=== PATIENT | male | born 1950 | race Caucasian/White ===

== ENCOUNTER 2018-04-24 16:30 | Observation (INO) | payer MEDICARE ==
[2018-04-24] MEDS ORDERED: SIMETHICONE 80 MG CHEWABLE PO PRN (21:22)
[2018-04-24] MEDS ORDERED: HYDROcodone/APAP 5-325MG 1 EACH TAB PO PRN (21:23)
[2018-04-24] MEDS ORDERED: TEMAZEPAM 15 MG CAP PO PRN (21:23)
[2018-04-24] MEDS ORDERED: NALOXONE 0.4 MG/ML 1 ML VIAL IV PRN (21:23)
[2018-04-24] MEDS ORDERED: ACETAMINOPHEN TAB 500 MG TAB PO PRN (21:24)
[2018-04-24] MEDS ORDERED: HYDROmorphone 0.5 MG/0.5 ML SYRINGE IVP PRN (21:24)
[2018-04-24] MEDS ORDERED: ALPRAZolam 0.25 MG TAB PO PRN (21:24)
[2018-04-24 21:25] VITALS: BMI 22.8
[2018-04-24] MEDS ORDERED: SODIUM CHLORIDE 0.9% 1,000 ML IV SCH (21:30)
[2018-04-24] MEDS ORDERED: HEPARIN SODIUM,PORCINE 5,000 UNIT/ML 1 ML VIAL IV PRN (21:48)
[2018-04-24] MEDS ORDERED: HEPARIN SOD,PORK IN 0.45% NACL 25,000 UNIT in 0.45% NACL 1 250ML.BAG IV SCH (22:00)
[2018-04-24 23:07] LABS: Basophils % (A) 1 %; Eosinophils # (A) 0.2 k/uL (0-0.7); Eosinophils % (A) 2 %; HCT 48.4 % (39.0-53.0); HGB 15.1 gm/dL (13.0-17.5); Lymphocytes # (A) 2.6 k/uL (1.0-4.8); Lymphocytes % (A) 34 %; MCH 29.2 pg (25.0-35.0); MCHC 31.2 g/dL (31.0-37.0); MCV 93.6 fL (80.0-100.0); Mean Platelet Volume 8.2; Monocytes # (A) 0.5 k/uL (0-1.0); Monocytes % (A) 6 %; Neutrophils # (A) 4.2 k/uL (1.3-7.7); Neutrophils % (A) 55 %; Platelet Count 241 k/uL (150-450); RBC 5.17 m/uL (4.30-5.90); RDW 13.2 % (11.5-15.5); WBC 7.6 k/uL (3.8-10.6)
[2018-04-24 23:23] LABS: Creatine Kinase 67 U/L (55-170)
[2018-04-24 23:27] LABS: D-Dimer 0.25 mg/L FEU (<0.60); Partial Thromboplastin Time 26.4 sec (22.0-30.0); Prothrombin Time 10.4 sec (9.0-12.0)
[2018-04-24 23:36] LABS: Creatine Kinase MB 0.9 ng/mL (0.0-2.4); Troponin I <0.012 ng/mL (0.000-0.034)
--- NOTE | 2018-04-24 23:51 | CT ---
EXAMINATION TYPE: CT ChestAbdPelvis wo con DATE OF EXAM: 04/24/2018 COMPARISON: None HISTORY: chest pain. hx copd CT DLP: 459.7 mGycm. Automated Exposure Control for Dose Reduction was Utilized. TECHNIQUE: CT scan of the thorax, abdomen and pelvis is performed without IV contrast. FINDINGS: The lungs are clear of infiltrate. There is no pleural effusion or pneumothorax. Heart size is normal . There is no pericardial effusion. There is mild aneurysm of ascending aorta measures 4.1 cm. There is no mediastinal adenopathy. There are no hilar masses. There are clips from cholecystectomy. Liver spleen pancreas appear normal. Bile ducts are not dilated . Stomach appears normal. There is no adrenal mass. Kidneys have normal size and contour. There is no hydronephrosis. There is no retroperitoneal adenopathy. Ureters are not dilated. Bladder distends smoothly. There is no inguinal hernia. There is no free fluid in the pelvis. Appendi x appears normal. There is no evidence of a bowel obstruction. There is no mesenteric edema or adenop athy. There is no sign of free air. Lumbar and thoracic spine appear intact. I see no bony destructiv e process. Bony pelvis is intact. IMPRESSION: Negative CT scan of the chest abdomen pelvis.
[2018-04-25 04:41] LABS: Anion Gap 7 mmol/L; Blood Urea Nitrogen 16 mg/dL (9-20); Calcium 9.3 mg/dL (8.4-10.2); Carbon Dioxide 24 mmol/L (22-30); Chloride 109 mmol/L (98-107); Glucose 87 mg/dL (74-99); Sodium 140 mmol/L (137-145)
[2018-04-25 04:57] LABS: Creatine Kinase 59 U/L (55-170)
[2018-04-25 05:11] LABS: Creatine Kinase MB 0.8 ng/mL (0.0-2.4); Troponin I <0.012 ng/mL (0.000-0.034)
[2018-04-25 05:20] LABS: Basophils # (A) 0.1 k/uL (0-0.2); Basophils % (A) 1 %; Eosinophils # (A) 0.3 k/uL (0-0.7); Eosinophils % (A) 3 %; HCT 48.5 % (39.0-53.0); HGB 14.9 gm/dL (13.0-17.5); Lymphocytes # (A) 3.2 k/uL (1.0-4.8); Lymphocytes % (A) 40 %; MCH 28.9 pg (25.0-35.0); MCHC 30.7 g/dL (31.0-37.0); Mean Platelet Volume 8.5; Monocytes # (A) 0.5 k/uL (0-1.0); Monocytes % (A) 6 %; Neutrophils # (A) 3.7 k/uL (1.3-7.7); Neutrophils % (A) 47 %; Platelet Count 251 k/uL (150-450); RBC 5.16 m/uL (4.30-5.90)
[2018-04-25] MEDS: IPRATROPIUM-ALBUTEROL 3 ML NEB INHALATION SCH ×3 (07:41→20:02)
[2018-04-25] MEDS: PANTOPRAZOLE 40 MG TABLET PO SCH (08:21)
[2018-04-25] MEDS: NICOTINE 14MG/24HR PATCH TRANSDERM SCH ×2 (08:21→08:22)
--- NOTE | 2018-04-25 08:49 | HP ---
HISTORY AND PHYSICAL . CHIEF COMPLAINT: Chest pain. HISTORY OF PRESENT ILLNESS: This 67-year-old gentleman with a past history of multiple medical problems including COPD, GERD, history of bleeding duodenal ulcer, history of cardiac murmur, history of bulging aorta, history of season allergies, anxiety being followed by [facility] and as well as [facility] [place] presented to [facility] with complaints of chest pain. Pain was felt especially in the left side and also with associated left arm tingling and numbness and the patient came to [facility] and subsequently transferred to [facility] and admitted for further evaluation and treatment. There is no history of fever, rigors or chills. No history of headache, loss of consciousness, seizures. PAST MEDICAL HISTORY: COPD, GERD, bleeding duodenal ulcer, cholecystectomy, DJD, anxiety. MEDICATIONS: Home medications are: 1. Gas-X 125 mg q.6h p.r.n. 2. Omeprazole 40 mg p.o. daily. 3. Sadie 180 mg q.h.s. 4. Ecotrin 81 mg. ALLERGIES: CAT DANDER, MOLD, POLLEN, AMOXICILLIN, CLAVULANIC ACID, CARAFATE, TRIMPEX, DURATES, TRIPLEX. FAMILY HISTORY: History of coronary artery disease, myocardial infarction in the family, history of cancer in the family. SOCIAL HISTORY: History of smoking. History of THC. REVIEW OF SYSTEMS: ENT: No diminished hearing. No diminished vision. CARDIOVASCULAR: As mentioned earlier. RESPIRATORY: As mentioned earlier. GI: No nausea or vomiting. : No dysuria. NERVOUS SYSTEM: No numbness or weakness. ALLERGY/IMMUNOLOGY: No asthma or hayfever. MUSCULOSKELETAL as mentioned earlier. HEMATOLOGY/ONCOLOGY: No history of anemia. ENDOCRINE: No history of diabetes or hypothyroidism. CONSTITUTIONAL: As mentioned earlier. Dermatology: Negative. Rheumatology: Negative. Psychiatry: As mentioned earlier. PHYSICAL EXAMINATION: GENERAL: Alert and oriented x3. VITAL SIGNS: Pulse is 64, blood pressure 172/60, respirations 16, temperature 98.2, pulse ox 98% on room air. HEENT: Conjunctivae normal. Oral mucosa moist. NECK is no jugular venous distention. No carotid bruit. No lymph node enlargement. CARDIOVASCULAR: S1, S2 muffled. RESPIRATION: Breath sounds diminished in the bases. A few scattered rhonchi and expiratory wheezing also present. A few crackles. ABDOMEN: Soft, nontender. No mass palpable. LEGS: No edema. No swelling. NERVOUS SYSTEM: Higher functions as mentioned earlier. Moves all four limbs. lymphatics: No lymph nodes palpable in the neck, axillae or groin. SKIN: No ulcer, rash or bleeding. LAB STUDIES: Pending at this time. ASSESSMENT: 1. Chest pain possible unstable angina. 2. Chronic obstructive pulmonary disease. 3. Thoracic aortic aneurysm 4.1 cm. 4. Gastroesophageal reflux disease. 5. History of bleeding duodenal ulcer. 6. History of seasonal allergies. 7. History of cholecystectomy. 8. History of anxiety. 9. History of nicotine dependence. 10.History of past ETOH abuse about 8 years ago. 11.History of THC. 12.Family history of coronary artery disease. RECOMMENDATIONS AND DISCUSSION: In this 67-year-old gentleman who presented with multiple complex medical issues , we will monitor the patient closely, continue the current medications, management and symptomatic treatment. I would recommend rule out myocardial infarction, cardiology consultations. Unstable angina protocol. I would also recommend a CT scan of the abdomen and pelvis and continue to monitor. N.p.o. after midnight. Guarded prognosis because of multiple complex medical issues. Further recommendations to follow. A copy of dictation forwarded to Dr. Wynne and Tika Carrillo who are the primary doctors. MMODL / IJN: [id number] / [email or web address]
[2018-04-25] MEDS ORDERED: NON-FORMULARY DRUG (Omeprazole [Omeprazole] 40 MG) PO SCH (09:00)
--- NOTE | 2018-04-25 09:45 | XR ---
EXAMINATION TYPE: XR chest 1V portable DATE OF EXAM: 04/25/2018 HISTORY: chf. REFERENCE: NONE. FINDINGS: The lungs are overinflated but clear. Pleural space are clear. The heart is not enlarged. IMPRESSION: COPD.
--- NOTE | 2018-04-25 11:04 | CONS ---
CONSULTATION HISTORY: Mr. Desai is a 67-year-old gentleman who was transferred from [facility] with a complaint of chest pain. The patient has been having some chest pain in the left precordial area under the ribcage. It was intermittent sharp pain. He did not had any nausea, vomiting or sweating. The patient was seen in the emergency room at [place] and subsequently was transferred over here. Patient denies any history of exertional chest discomfort. There is no prior history of myocardial infarction. The patient's EKGs and cardiac enzymes are so far normal. The patient does have a past history of bleeding ulcer and history of COPD and cholecystectomy. The patient had a CT scan of the abdomen which was normal. PAST MEDICAL HISTORY: Includes history of COPD, bleeding duodenal ulcer, cholecystectomy. HOME MEDICATIONS: Include Gas-X, omeprazole, Sadie, and Ecotrin. REVIEW OF THE SYSTEM: Otherwise unremarkable. PHYSICAL EXAMINATION: Reveals a 67-year-old gentleman who is currently not in any acute distress. Blood pressure is 140/67 mmHg, heart rate is 78 per minute. HEENT examination is negative. Neck is supple. There is no increase in jugular venous pressure. Both the carotid pulses are felt. There is no bruit. Chest is symmetrical. Heart, the PMI is not felt. First and second heart sounds are normal. Lungs are clinically clear to auscultation and percussion. Abdomen negative. Extremities, peripheral pulses are 2+. The EKG shows normal sinus rhythm without any acute ischemic changes. Cardiac enzymes are negative. FINAL IMPRESSION: This patient's history is suggestive of atypical angina. The patient's CT scan is normal. EKGs and cardiac enzymes are normal. The patient will be evaluated with echocardiogram and stress echocardiographic study tomorrow. If that is normal, patient can be discharged. He is advised to follow up with Dr. Jarrett in [place]. MMODL / IJN: [id number] /
[2018-04-25 13:39] LABS: Creatine Kinase 58 U/L (55-170)
[2018-04-25 13:52] LABS: Creatine Kinase MB 0.8 ng/mL (0.0-2.4); Troponin I <0.012 ng/mL (0.000-0.034)
[2018-04-25] MEDS ORDERED: LORATADINE 10 MG TAB PO SCH (21:00)
[2018-04-25] MEDS ORDERED: ASPIRIN 81 MG PO SCH (21:00)
--- NOTE | 2018-04-26 00:43 | PN ---
PROGRESS NOTE DATE OF SERVICE: 04/25/2018 This 67-year-old gentleman who was admitted with chest pain is being closely monitored at this time. Cardiology saw the patient and is recommending a stress test, stress echo tomorrow. No chest pain. No palpitations. No fever. EXAM: GENERAL: Alert and oriented times three. VITAL SIGNS: Pulse is 82. Blood pressure 116/60, respirations 16, temperature 98.2, pulse ox 98% on room air. HEENT: Conjunctivae normal. NECK: No jugular venous distention. CARDIOVASCULAR: S1, S2 normal. RESPIRATORY: Breath sounds diminished in the bases. Scattered rhonchi. No crackles. ABDOMEN is soft, nontender. LEGS are no edema, no swelling. CENTRAL NERVOUS SYSTEM: No focal deficits. LABS: CBC, BMP noted. ASSESSMENT: 1. Chest pain possible unstable angina. 2. Myocardial infarction ruled out. 3. Chronic obstructive pulmonary disease. 4. Thoracic aortic aneurysm 4.1 cm. 5. Gastroesophageal reflux disease. 6. History of bleeding duodenal ulcer. 7. History of seasonal allergies. 8. History of cholecystectomy. 9. History of anxiety. 10.History of nicotine dependence. 11.History of a past ETOH abuse, about 8 years ago. 12.History of THC. 13.Family history of coronary artery disease. RECOMMENDATIONS AND DISCUSSION: Recommend to continue current medications, management and symptomatic treatment. Otherwise at this time, stress test per Cardiology. Thoracic aortic aneurysm to be followed up in the outpatient setting. Otherwise, continue to monitor. Prognosis guarded. Stable. Further recommendations to follow. MMODL / IJN: [id number] /
[2018-04-26 08:11] VITALS: RESP 18
[2018-04-26] MEDS: IPRATROPIUM-ALBUTEROL 3 ML NEB INHALATION SCH ×2 (08:36→13:04)
--- NOTE | 2018-04-26 10:58 | P.PN ---
Subjective This is a pleasant 67-year-old male past medical history significant for COPD and chronic nicotine dependence. He denies hypertension, dyslipidemia, coronary artery disease or diabetes mellitus. He is scheduled to see Dr. Jarrett in the beginning of May. He denies any further symptoms of chest discomfort since admission. He also denies significant shortness of breath, no palpitations or dizziness. Blood pressure 116/75 heart rate is 78 afebrile maintaining oxygen saturation on room air. Cardiac enzymes negative 3, echocardiogram pending. Currently maintained on aspirin 81 mg daily. He states he used to take medication for hypertension, but has not been on them for the last 3 years due to his blood pressure improving. He states he checks his pressures daily at home and over the last few weeks they have been trending in the 140 systolic range. GENERAL: Well-appearing, well-nourished and in no acute distress. NECK: Supple without JVD or thyromegaly. LUNGS: Breath sounds clear to auscultation bilaterally. Respiration equal and unlabored. No wheezes, rales or rhonchi. HEART: Regular rate and rhythm without murmurs, rubs or gallops. S1 and S2 heard. EXTREMITIES: Normal range of motion, no edema. No clubbing or cyanosis. Peripheral pulses intact. ASSESSMENT Chest pain, atypical. An acute coronary event has been ruled out with no EKG evidence of ischemia and negative cardiac enzymes. Hypertension COPD Chronic nicotine dependence PLAN Initiate on small dose of lisinopril 5 mg daily. Proceed with stress echocardiogram and doppler study to assess cardiac structure and function. Check lipid profile. If stress test is normal he is stable from a cardiac perspective. Follow up with Dr. Jarrett at already scheduled appointment in May. Continue to check blood pressures daily at home and keep journal to bring with him to follow up appointment. Nurse Practitioner note has been reviewed, I agree with a documented findings and plan of care. Patient was seen and examined. Objective - Vital Signs Vital signs: Vital Signs Temp 97.8 F 04/26/18 07:35 Pulse 80 04/26/18 08:47 Resp 18 04/26/18 07:35 BP 168/75 04/26/18 07:35 Pulse Ox 97 04/26/18 07:35 Intake & Output 04/25/18 04/26/18 04/26/18 18:59 06:59 18:59 Other: Voiding Method Toilet Toilet # Voids 1 - Labs CBC & Chem 7: 04/25/18 04:09 04/25/18 04:09
[2018-04-26] MEDS ORDERED: LISINOPRIL 5 MG TAB PO SCH (11:00)
[2018-04-26] MEDS: NICOTINE 14MG/24HR PATCH TRANSDERM SCH (11:13)
[2018-04-26] MEDS: PANTOPRAZOLE 40 MG TABLET PO SCH (11:15)
[2018-04-26 11:33] LABS: Cholesterol 205 mg/dL (<200); HDL Cholesterol 49 mg/dL (40-60); LDL Cholesterol,Calculated 128 mg/dL (0-99); Triglycerides 138 mg/dL (<150)
[2018-04-26 12:02] VITALS: BP 115/78; PULSE 91; TEMP 97.3
--- NOTE | 2018-04-27 07:06 | ECHOS ---
STRESS ECHOCARDIOGRAM DATE OF SERVICE: 04/26/2018 INDICATIONS: Chest pain. MEDICATIONS: BASELINE HEART RATE: 97 BASELINE BLOOD PRESSURE: 145/78 MAXIMUM HEART RATE: 158 MAXIMUM BLOOD PRESSURE: 196/91 85% MPHR: 128 100% MPHR: 151 METS: 7.1 MAXIMUM STAGE REACHED: II TOTAL EXERCISE TIME: 5 minutes 15 seconds CLINICAL INFORMATION: Baseline EKG revealed normal sinus rhythm without significant ST-T changes. Patient walked for 5 minutes 15 seconds achieved a maximal heart rate of 158 beats per minute which is more than 85% of predicted maximal. The patient developed fatigue and shortness of breath but did not have any angina or arrhythmia. EKG did not reveal any ST-segment changes to indicate ischemia. Nonspecific upsloping ST-segment changes were noted. By EKG criteria, this is a negative stress test with limited exercise capacity. Baseline echo images revealed normal wall motion and wall thickening of all segments. At peak exercise, there was good augmentation of left ventricular wall motion and wall thickening of all segments. The inferobasal segment showed some questionable area of hypokinesia, but I do not believe this is significant. There is no clear-cut evidence of stress-induced ischemia on this study. FINAL IMPRESSION: 1. Fair exercise capacity with a negative stress test by EKG criteria. 2. No clear-cut evidence of ischemia on the stress echocardiogram. MMODL / IJN: [id number] /
--- NOTE | 2018-04-27 07:19 | ECHOF ---
Referral Reason:cp MEASUREMENTS -------- HEIGHT: 172.7 cm WEIGHT: 67.6 kg BP: 160/75 RVIDd: 2.5 cm (< 3.3) IVSd: 1.0 cm (0.6 - 1.1) LVIDd: 3.8 cm (3.9 - 5.3) LVPWd: 1.0 cm (0.6 - 1.1) IVSs: 1.1 cm LVIDs: 2.7 cm LVPWs: 1.2 cm LAESV Index (A-L): 10.81 ml/m Ao Diam: 2.7 cm (2.0 - 3.7) AV Cusp: 1.1 cm (1.5 - 2.6) LA Diam: 2.5 cm (2.7 - 3.8) EPSS: 0.7 cm MV E Carlos: 0.78 m/s MV DecT: 274 ms MV A Carlos: 0.82 m/s MV E/A Ratio: 0.95 RAP: 5.00 mmHg RVSP: 9.51 mmHg MV EF SLOPE: 85.04 mm/s (70 - 150) MV EXCURSION: 1.16 cm (> 18.000) FINDINGS -------- Sinus rhythm. This was a technically good study. The left ventricular size is normal. Left ventricular wall thickness is normal. Overall left vent ricular systolic function is normal with, an EF between 55 - 60 %. The right ventricle is normal in size and function. Normal LA size by volume 22+/-6 ml/m2. The right atrium is normal in size. Aortic valve is trileaflet and is mildly thickened. There is no evidence of aortic regurgitation. There is no evidence of aortic stenosis. The mitral valve leaflets are mildly thickened. There is trace to mild mitral regurgitation. Trace tricuspid regurgitation present. Right ventricular systolic pressure is normal at < 35 mmHg. There is no evidence of pulmonary hypertension. Trace/mild (physiologic) pulmonic regurgitation. The aortic root size is normal. Normal inferior vena cava with normal inspiratory collapse consistent with estimated right atrial pre ssure of 5 mmHg. There is no pericardial effusion. CONCLUSIONS -------- 1. Sinus rhythm. 2. This was a technically good study. 3. The left ventricular size is normal. 4. Left ventricular wall thickness is normal. 5. Overall left ventricular systolic function is normal with, an EF between 55 - 60 %. 6. Normal LA size by volume 22+/-6 ml/m2. 7. Aortic valve is trileaflet and is mildly thickened. 8. The mitral valve leaflets are mildly thickened. 9. There is trace to mild mitral regurgitation. 10. Trace tricuspid regurgitation present. 11. Right ventricular systolic pressure is normal at < 35 mmHg. 12. There is no evidence of pulmonary hypertension. 13. Trace/mild (physiologic) pulmonic regurgitation. 14. The aortic root size is normal. 15. There is no pericardial effusion. STEAM FITTER: Jerome Alfaro RDCS
--- NOTE | 2018-04-27 08:00 | DS ---
DISCHARGE SUMMARY DATE OF SERVICE: 04/26/2018 FINAL DIAGNOSES: 1. Chest pain, myocardial infarction ruled out, possibly musculoskeletal. Negative stress echo, official report pending. Other diagnosis of chronic obstructive pulmonary disease. 2. Thoracic aortic aneurysm 4.1 cm. 3. Gastroesophageal reflux disease, history of bleeding, duodenal ulcer. 4. History of seasonal allergies. 5. History of cholecystitis. 6. History of anxiety. 7. History of nicotine dependence. 8. History of past ETOH abuse. about 8 years ago. 9. History of THC. 10.Family history of coronary artery disease. 11.Hypertension. DISCHARGE DISPOSITION: The patient will be discharged in a stable condition with guarded prognosis. HISTORY OF PRESENT ILLNESS: This is a 67-year-old gentleman with a past medical history of multiple medical problems admitted with chest pain, myocardial infarction ruled out. Stress echo was apparently normal. The official report is pending at this time. The patient is discharged. On exam, vitals are stable. CARDIOVASCULAR: S1, S2. ABDOMEN: Soft. NERVOUS SYSTEM: No focal deficits. Discharge diet is cardiac diet. FOLLOWUP: Follow up with the primary physician in 1 week. Follow up with Dr. Jarrett as advised. MEDICATIONS FOLLOWS: 1. Ecotrin 81 mg q.h.s. 2. Sadie 180 mg q.h.s. 3. Omeprazole 40 mg daily. 4. Gas-X q.6 p.r.n. 5. Ventolin HFA 1-2 puffs q.6. 6. Zestril 5 mg p.o. daily. 7. Habitrol 14 daily. Once again, the patient will be discharged in a stable condition with guarded prognosis. MMODL / IJN: [id number] /
== END 2018-04-26 14:11 | disposition home or self-care (01) ==
LOC: 1SOBS 20:20
PROVIDERS: ADMIT Internal Medicine; ATTEND Internal Medicine
DX: R07.2 Precordial pain (principal); R20.2 Paresthesia of skin; R20.0 Anesthesia of skin; J44.9 Chronic obstructive pulmonary disease, unspecified; I71.2 Thoracic aortic aneurysm, without rupture; Z87.11 Personal history of peptic ulcer disease; K21.9 Gastro-esophageal reflux disease without esophagitis; J30.2 Other seasonal allergic rhinitis; F41.9 Anxiety disorder, unspecified; Z82.49 Family history of ischemic heart disease and other diseases of the circulatory system; I10 Essential (primary) hypertension; Z87.891 Personal history of nicotine dependence; Z90.49 Acquired absence of other specified parts of digestive tract; M19.90 Unspecified osteoarthritis, unspecified site; Z79.899 Other long term (current) drug therapy; Z79.82 Long term (current) use of aspirin; Z80.9 Family history of malignant neoplasm, unspecified; Z88.0 Allergy status to penicillin; Z88.8 Allergy status to other drugs, medicaments and biological substances; Z91.048 Other nonmedicinal substance allergy status
CPT/HCPCS: 96365; 96366 ×2; 94640 ×3; 94760; 93306; 93351; 85379; 80061; 80048; 82550 ×2; 82553 ×2; 84484 ×2; 85025 ×2; 85610; 85730 ×2; 71045; 71250; 74176; G0378 ×3; G0379; J1644

== ENCOUNTER 2022-09-10 09:14 | Day surgery (SDC) | payer MEDICARE ==
[~2022-09-10 09:14] MED LIST: ALPRAZolam 0.25 MG TAB PO PRN; ASPIRIN 325 MG TAB PO PRN; SODIUM CHLORIDE 0.9% 1,000 ML in EMPTY BAG 1 BAG IV ONE
[2022-09-10 10:02] LABS: Basophils % (A) 0 %; Eosinophils # (A) 0.1 k/uL (0-0.7); Eosinophils % (A) 1 %; HCT 44.4 % (39.0-53.0); HGB 14.8 gm/dL (13.0-17.5); Lymphocytes # (A) 1.9 k/uL (1.0-4.8); Lymphocytes % (A) 29 %; MCH 30.5 pg (25.0-35.0); MCHC 33.3 g/dL (31.0-37.0); MCV 91.8 fL (80.0-100.0); Mean Platelet Volume 8.8; Monocytes # (A) 0.3 k/uL (0-1.0); Monocytes % (A) 4 %; Neutrophils # (A) 4.3 k/uL (1.3-7.7); Neutrophils % (A) 65 %; Platelet Count 218 k/uL (150-450); RBC 4.84 m/uL (4.30-5.90); RDW 13.4 % (11.5-15.5); WBC 6.6 k/uL (3.8-10.6)
[2022-09-10 10:12] LABS: African American GFR (CKD) >90 (>60 ml/min/1.73 sqM); Anion Gap 11 mmol/L; Blood Urea Nitrogen 14 mg/dL (9-20); Calcium 9.2 mg/dL (8.4-10.2); Carbon Dioxide 24 mmol/L (22-30); Chloride 105 mmol/L (98-107); Glucose 107 mg/dL (74-99); Non-African American GFR(CKD) 87 (>60 ml/min/1.73 sqM); Potassium 4.1 mmol/L (3.5-5.1); Sodium 140 mmol/L (137-145)
[2022-09-10] MEDS ORDERED: LIDOCAINE 1% INJ 10MG/ML (20 ML MDV) ONE (11:12)
[2022-09-10] MEDS ORDERED: MIDAZOLAM 2 MG/2 ML VIAL IV ONE (11:29)
[2022-09-10] MEDS: HEPARIN SODIUM 1,000 UN/ML (10ML VL) IVP ONE ×2 (11:40→11:58)
[2022-09-10] MEDS ORDERED: HEPARIN SODIUM 1,000 UN/ML (10ML VL) ONE (11:41)
[2022-09-10] MEDS ORDERED: hydrALAZINE HCL 20 MG/ML 1 ML VIAL ONE ×2 (12:46→14:46)
[2022-09-10] MEDS: hydrALAZINE HCL 20 MG/ML 1 ML VIAL IVP ONE ×2 (12:48→15:03)
[2022-09-10] MEDS ORDERED: fentaNYL (PF) 50 MCG/ML 2 ML AMP ONE (12:59)
[2022-09-10] MEDS ORDERED: fentaNYL (PF) 50 MCG/ML 2 ML AMP IVP ONE (13:01)
[2022-09-10] MEDS ORDERED: IOPAMIDOL-370 100ML BTL INJ ONE (13:08)
[2022-09-10] MEDS ORDERED: ASPIRIN 325 MG TAB PO PRN (13:16)
[2022-09-10] MEDS ORDERED: FLUTICASONE 50MCG/SPRAY NASAL 16GM NASAL PRN (13:16)
[2022-09-10] MEDS ORDERED: NALOXONE 0.4 MG/ML 1 ML VIAL IVP PRN (13:17)
[2022-09-10] MEDS ORDERED: CLOPIDOGREL 75 MG TAB ONE (13:17)
[2022-09-10] MEDS ORDERED: CLOPIDOGREL 75 MG TAB PO ONE (13:20)
--- NOTE | 2022-09-10 13:23 | P.PCN ---
Date of Procedure: 09/10/22 Operative Findings: PERCUTANEOUS PERIPHERAL INTERVENTION Performing physician Trae Jarrett M.D. Procedure performed 1. Successful balloon angioplasty of the right SFA with adjunctive use off atherectomy and imaging 2. Successful stenting of the right external iliac and common iliac artery with adjunctive use off lithotripsy and imaging 3. Right lower extremity angiogram and left common femoral artery angiogram 4. Ultrasound-guided access of the left common femoral artery Indication Right lower extremities intermittent claudication appeared to be disabling in this gentleman who underwent an angiogram and that showed critical right common and right external iliac artery and critical right SFA Approach Left common femoral artery Complications None Level of sedation Moderate with a sedation time of 95 minutes Procedure description After obtaining an informed consent the patient was brought to the cardiac laboratory coordinator. The left common femoral artery was cannulated using micropuncture technique and guidance, the micropuncture wire passed easily then I placed a 6- Kittitian sheath 70 cm at the left common femoral artery. Anticoagulation at that point was initiated using heparin with continuous ACT monitoring. Subsequently I did selective the right SFA using 035 stiff Glidewire with a backup support of 5-Kittitian rim catheter and then I advanced the sheath over the wire and the catheter to the right common femoral artery. Right lower extremity angiogram was performed and showed critical disease involving the right SFA and right iliacs. I did an measuring using intravascular ultrasound and that showed a diameter of the SFA around 6 mm. Atherectomy was performed using the Hawk device. After that balloon angioplasty was performed using 6 mm balloon and then 6 cm drug-coated balloon with angiogram following that showing an excellent angiographic results. Regarding the right iliacs I pulled the sheath all the way to the ostial of the right common iliac artery. I did after that over 014 wire intravascular ultrasound and that showed a diameter of the external about 7 mm and common around 8 mm. The external was extremely calcified and I decided to do lithotripsy. That was 7 mm x 40 mm balloon. After that I did deploy initially in the right external iliac artery self-expandable stent and that was 8 mm x 60 mm and that was connected proximally in the right common iliac artery was balloon expandable stent which was 8 mm x 59 mm. Final angiogram was performed and showed an excellent angiographic results. After that I did exchange my long sheath into short sheath over an 035 wire before I did selective left common femoral artery angiogram by the end. The procedure was completed was no complication Postprocedure management 1. Dual antiplatelet therapy 2. Aggressive cholesterol control 3. Risk factors modification 4. Follow-up with the patient
[2022-09-10] MEDS ORDERED: SODIUM CHLORIDE 0.9% 1,000 ML in EMPTY BAG 1 BAG IV SCH (13:30)
--- NOTE | 2022-09-10 15:49 | IR ---
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 Right leg pain. TECHNIQUE: Fluoroscopy. COMPARISON: None. FINDINGS: Fluoroscopic guidance was provided during lower extremity angiogram procedure performed by Dr. Jarrett. A total of 24.4 MedX of fluoroscopic time was utilized during the procedure and 288 spot images was acquired. Please refer to procedure note for further details. IMPRESSION: As Above. TOTAL DAP = 35.9 Gy x cm2.
[2022-09-10] MEDS ORDERED: LORATADINE 10 MG TAB PO SCH (21:00)
[2022-09-10] MEDS ORDERED: amLODIPine 5 MG TAB PO SCH (21:00)
[2022-09-10] MEDS ORDERED: ATORVASTATIN 80 MG TAB PO SCH (21:00)
[2022-09-11] MEDS ORDERED: PANTOPRAZOLE 40 MG TABLET PO SCH (07:30)
[2022-09-11] MEDS ORDERED: SERTRALINE 25 MG TAB PO SCH (09:00)
[2022-09-11] MEDS ORDERED: CLOPIDOGREL 75 MG TAB PO SCH (09:00)
[2022-09-11] MEDS ORDERED: ASPIRIN 325 MG TAB PO SCH (09:00)
[2022-09-11 09:26] VITALS: TEMP 98
--- NOTE | 2022-09-11 11:04 | P.DS ---
Providers Attending physician: Trae Jarrett Primary care physician: Stated None Hospital Course: The patient is a pleasant 72-year-old gentleman who underwent yesterday successful RN UNIT MANAGER of the right iliac and right SFA. He was seen this morning. He is asymptomatic and stable. The left groin is soft and nontender was no bruises. The patient is going to be discharged home on dual antiplatelet therapy and he'll follow-up with the patient next week in the office Plan - Discharge Summary Discharge Rx Participant: No New Discharge Prescriptions: New Atorvastatin Calcium [Lipitor] 40 mg PO DAILY #90 tab Clopidogrel [Plavix] 75 mg PO DAILY #90 tablet Continue Fexofenadine HCl [Sadie Allergy] 180 mg PO HS Fluticasone Nasal [place] [Flonase Nasal [place]] 1 spray NASAL DAILY PRN PRN Reason: Allergy Symptoms Aspirin 325 mg PO DAILY PRN PRN Reason: Per Protocol Sertraline [Zoloft] 5 mg PO QAM amLODIPine [Norvasc] 5 mg PO HS Omeprazole 40 mg PO QAM Discharge Medication List Omeprazole 40 mg PO QAM 08/19/22 [History] Sertraline [Zoloft] 5 mg PO QAM 08/19/22 [History] amLODIPine [Norvasc] 5 mg PO HS 08/19/22 [History] Fexofenadine HCl [Sadie Allergy] 180 mg PO HS 09/08/22 [History] Fluticasone Nasal [place] [Flonase Nasal [place]] 1 spray NASAL DAILY PRN 09/08/22 [History] Aspirin 325 mg PO DAILY PRN 09/10/22 [History] Atorvastatin Calcium [Lipitor] 40 mg PO DAILY #90 tab 09/11/22 [Rx] Clopidogrel [Plavix] 75 mg PO DAILY #90 tablet 09/11/22 [Rx] Follow up Appointment(s)/Referral(s): Trae Jarrett MD [STAFF PHYSICIAN] - 1 Week (APPOINTMENT MADE ON August @ 1:45PM )
[2022-09-11 11:28] LABS: African American GFR (CKD) >90 (>60 ml/min/1.73 sqM); Non-African American GFR(CKD) 82 (>60 ml/min/1.73 sqM)
[2022-09-11 12:29] VITALS: BP 161/72; PULSE 70; RESP 16
== END 2022-09-11 14:05 | disposition home or self-care (01) ==
LOC: CATHCVL 09:14 → 3SCARD 13:10 → CATHCVL 09-11 14:05
PROVIDERS: ATTEND Internal Medicine Interventional Cardiology
DX: I70.213 Atherosclerosis of native arteries of extremities with intermittent claudication, bilateral legs (principal); Z79.02 Long term (current) use of antithrombotics/antiplatelets; I08.0 Rheumatic disorders of both mitral and aortic valves; I65.23 Occlusion and stenosis of bilateral carotid arteries; I10 Essential (primary) hypertension; E78.5 Hyperlipidemia, unspecified; I71.20 Thoracic aortic aneurysm, without rupture, unspecified; F17.200 Nicotine dependence, unspecified, uncomplicated; Z82.49 Family history of ischemic heart disease and other diseases of the circulatory system; Z88.0 Allergy status to penicillin; Z88.8 Allergy status to other drugs, medicaments and biological substances; Z79.82 Long term (current) use of aspirin; Z79.899 Other long term (current) drug therapy
CPT/HCPCS: 99152; 99153 ×5; 37225; 37252; 37253; 80048; 82565; 85025; C1894 ×2; C1769 ×4; C1725 ×3; C1876 ×2; C1714; C1753; C9765; C2623; J2250; J0360; J3010; J1644; Q9967